=== PATIENT | female | born 1990 ===

== ENCOUNTER 2018-11-10 10:36 | Outpatient (CLI) | payer BC, OTHER ==
[~2018-11-10] VITALS: Ht 162.6 cm; Wt 109.8 kg
== END 2018-11-10 14:43 | disposition home or self-care (01) ==
LOC: PREOP 10:36
PROVIDERS: ATTEND Orthopaedic Surgery Orthopaedic Trauma
DX: Z01.818 Encounter for other preprocedural examination (principal)